=== PATIENT | female | born 1955 | race African-American/Black ===

== ENCOUNTER 2018-05-07 21:59 | Emergency (ER) | payer MEDICAID, MEDICARE ==
[~2018-05-07] VITALS: Ht 167.6 cm; Wt 69.0 kg
[~2018-05-07 21:59] MED LIST: FENTANYL PATCH; HYDR-1348 PO; S350 PO
[2018-05-07] MEDS ORDERED: IBUPROFEN 600MG TABLET PO ONE (23:00)
[2018-05-08] MEDS ORDERED: KETOROLAC 60MG/2ML VIAL IM ONE (00:45)
[2018-05-08 01:25] VITALS: BP 116/65
== END 2018-05-08 01:27 | disposition home or self-care (01) ==
LOC: ER 21:59
DX: S52.501A Unspecified fracture of the lower end of right radius, initial encounter for closed fracture (principal); M19.90 Unspecified osteoarthritis, unspecified site; Z79.899 Other long term (current) drug therapy; W19.XXXA Unspecified fall, initial encounter; Y93.89 Activity, other specified; Y92.89 Other specified places as the place of occurrence of the external cause; Y99.8 Other external cause status
CPT/HCPCS: 29125; 73090; 73110; 96372; 99284; J1885; A4565

== ENCOUNTER 2018-05-26 05:47 | Inpatient (IN) | payer MEDICARE ==
[~2018-05-26] VITALS: Ht 167.6 cm; Wt 68.9 kg
[~2018-05-26 05:47] MED LIST changes: +LACTATED RINGERS 1,000 ML IV SCH
[2018-05-26 06:58] LABS: BASOPHILS % 0.9 % (0.0-2.0); EOSINOPHILS % 2.5 % (0.0-5.0); HEMOGLOBIN. 14.2 g/dL (12.0-16.0); MEAN CORPUSCULAR HEMOGLOBIN 33.8 pg (28.0-32.0); MEAN CORPUSCULAR VOLUME 102.2 fL (81.0-99.0); MEAN PLATELET VOLUME 10.8 fl (7.4-10.4); MONOCYTES % 8.2 % (2.0-8.0); NEUTROPHILS % 65.4 % (40.0-76.0); PLATELET 128 x1000/uL (130-400); RED CELL DISTRIBUTION WIDTH 13.1 % (11.6-14.6)
[2018-05-26 07:01] LABS: CLARITY URINE CLEAR (CLEAR); COLOR URINE YELLOW (YELLOW); KETONES URINE NEGATIVE (NEGATIVE); LEUKOCYTE ESTERASE URINE 1+ (NEGATIVE); NITRITE URINE NEGATIVE (NEGATIVE); OCCULT BLOOD URINE NEGATIVE (NEGATIVE); PH URINE 7.5 (4.5-8.0); PROTEIN URINE NEGATIVE (NEGATIVE); SPECIFIC GRAVITY URINE 1.018 (1.005-1.030)
[2018-05-26 07:12] LABS: INR 1.1; PARTIAL THROMBOPLASTIN TIME 26.5 sec (23.4-31.0); PROTHROMBIN TIME 10.6 sec (9.1-11.1)
[2018-05-26] MEDS ORDERED: NORMAL SALINE 0.9% 10 ML SYR ONE (07:24)
[2018-05-26] MEDS ORDERED: BUPIVACAINE HCL/PF 0.25% (2.5MG/ML) 10ML ONE (07:24)
[2018-05-26] MEDS ORDERED: BACITRACIN 50,000 UNITS/VIAL ONE (07:25)
[2018-05-26] MEDS ORDERED: ZOLP10TA2 PO (07:52)
[2018-05-26] MEDS ORDERED: TOPA200 PO (07:52)
[2018-05-26] MEDS ORDERED: EVIS60 PO (07:52)
[2018-05-26] MEDS ORDERED: HYDR4TAB4 PO (07:52)
[2018-05-26] MEDS ORDERED: CHOL500051 PO (07:52)
[2018-05-26] MEDS ORDERED: ESCI10TA PO (07:52)
[2018-05-26] MEDS ORDERED: TIZA4CAP PO (07:52)
[2018-05-26] MEDS ORDERED: FAMO40TA70 PO (07:52)
[2018-05-26] MEDS ORDERED: MIDAZOLAM HCL 2 MG/2 ML VIAL ONE (07:53)
[2018-05-26] MEDS ORDERED: ONDANSETRON HCL 4MG/2ML INJ ONE (07:53)
[2018-05-26] MEDS ORDERED: LIDOCAINE HCL/PF 1% 10 MG/ML 5ML VIAL ONE (07:53)
[2018-05-26] MEDS ORDERED: GLYCOPYRROLATE 0.2 MG/ML 2ML VIAL ONE (07:53)
[2018-05-26] MEDS ORDERED: FENTANYL CITRATE/PF 50MCG/ML 2ML VIAL ONE (07:53)
[2018-05-26] MEDS ORDERED: PROPOFOL 200MG/20ML VIAL IV ONE (07:53)
[2018-05-26] MEDS ORDERED: METOCLOPRAMIDE HCL 10MG/2ML VIAL ONE (07:53)
[2018-05-26] MEDS ORDERED: SUCCINYLCHOLINE CHLORIDE 200MG/10ML IV ONE (07:53)
[2018-05-26] MEDS ORDERED: IMIT50 PO (07:54)
[2018-05-26] MEDS ORDERED: ROPIVACAINE HCL 10MG/ML 20 ML VIAL EPI ONE ×2 (07:57→08:00)
[2018-05-26] MEDS ORDERED: ALBUMIN HUMAN 12.5G/250ML (5%) IV ONE (08:37)
[2018-05-26 09:16] LABS: CLARITY URINE CLEAR (CLEAR); COLOR URINE YELLOW (YELLOW); KETONES URINE TRACE (NEGATIVE); LEUKOCYTE ESTERASE URINE NEGATIVE (NEGATIVE); NITRITE URINE NEGATIVE (NEGATIVE); OCCULT BLOOD URINE NEGATIVE (NEGATIVE); PH URINE 8.5 (4.5-8.0); PROTEIN URINE NEGATIVE (NEGATIVE); SPECIFIC GRAVITY URINE 1.023 (1.005-1.030)
[2018-05-26] MEDS ORDERED: SODIUM CHLORIDE 0.9% 1,000 ML IV ONE (10:39)
[2018-05-26] MEDS ORDERED: HYDROMORPHONE HCL/PF 2MG/ML CPJ IV PRN (10:45)
[2018-05-26] MEDS ORDERED: MORPHINE SULFATE 4 MG/ML CPJ (NOT FOR IM USE) IV PRN ×2 (10:45→11:45)
[2018-05-26] MEDS ORDERED: ONDANSETRON HCL 4MG/2ML INJ IV PRN ×2 (10:45→11:45)
[2018-05-26] MEDS ORDERED: MEPERIDINE HCL/PF 25MG/ML CPJ IV PRN ×2 (10:45)
[2018-05-26] MEDS ORDERED: MAGNESIUM HYDROXIDE 400MG/5ML 30ML UDC PO PRN (11:45)
[2018-05-26] MEDS ORDERED: KETOROLAC 30MG/ML VIAL IV PRN (11:45)
[2018-05-26] MEDS ORDERED: ZOLPIDEM TARTRATE 5MG TABLET PO PRN (11:45)
[2018-05-26] MEDS ORDERED: TRAMADOL 50MG TABLET PO PRN (11:45)
[2018-05-26] MEDS ORDERED: HYDROCODONE/ACETAMINOPHEN 10/325MG TABLET PO PRN (11:45)
[2018-05-26 12:00] VITALS: BP 104/55
[2018-05-26 16:00] VITALS: BP 102/53
[2018-05-26] MEDS: DOCUSATE SODIUM 100MG CAPSULE PO SCH (17:28)
[2018-05-26] MEDS: CEFAZOLIN 2,000 MG in DEXT 5% WATER 100 ML IV SCH ×2 (17:36→21:36)
[2018-05-26] MEDS: HYDROCODONE/ACETAMINOPHEN 10/325MG TABLET PO PRN ×2 (17:56→22:50)
[2018-05-26 19:24] VITALS: BP 102/53
[2018-05-26 20:00] VITALS: BP 102/54
[2018-05-26] MEDS: ACETAMINOPHEN 325MG TABLET PO PRN (21:31)
[2018-05-27] VITALS: BP 133/72
[2018-05-27] MEDS: HYDROCODONE/ACETAMINOPHEN 10/325MG TABLET PO PRN (03:20)
[2018-05-27 04:00] VITALS: BP 139/78
[2018-05-27] MEDS: MORPHINE SULFATE 4 MG/ML CPJ (NOT FOR IM USE) IV PRN ×4 (06:49→20:25)
[2018-05-27 08:00] VITALS: BP 149/89
[2018-05-27] MEDS: DOCUSATE SODIUM 100MG CAPSULE PO SCH ×2 (09:28→16:11)
[2018-05-27 11:03] LABS: CHLORIDE 110 mEq/L (98-107)
[2018-05-27 12:00] VITALS: BP 158/88
[2018-05-27 16:00] VITALS: BP 157/86
[2018-05-27 20:00] VITALS: BP 149/85
[2018-05-28] VITALS: BP 144/81
[2018-05-28] MEDS: MORPHINE SULFATE 4 MG/ML CPJ (NOT FOR IM USE) IV PRN ×2 (00:33→05:55)
[2018-05-28] MEDS: ACETAMINOPHEN 325MG TABLET PO PRN (00:38)
[2018-05-28 04:00] VITALS: BP 110/79
[2018-05-28 05:56] VITALS: BP 126/80
[2018-05-28] MEDS: DOCUSATE SODIUM 100MG CAPSULE PO SCH (09:00)
[2018-05-28 11:00] VITALS: BP 113/78
[2018-05-28 13:23] VITALS: BP 119/63
[2018-05-28] MEDS: HYDROCODONE/ACETAMINOPHEN 10/325MG TABLET PO PRN (13:23)
== END 2018-05-28 15:46 | disposition home or self-care (01) | DRG 512 ==
LOC: OR 05:47 → 6EST 05:48
PROVIDERS: ADMIT Orthopaedic Surgery; ATTEND Orthopaedic Surgery
PROC: 0PUH0KZ Supplement Right Radius with Nonautologous Tissue Substitute, Open Approach (ICD-10-PCS; 2018-05-26)
PROC: 0PSH04Z Reposition Right Radius with Internal Fixation Device, Open Approach (ICD-10-PCS; principal; 2018-05-26 07:30)
DX: S52.571P Other intraarticular fracture of lower end of right radius, subsequent encounter for closed fracture with malunion (principal); G89.4 Chronic pain syndrome; L84 Corns and callosities; M81.0 Age-related osteoporosis without current pathological fracture; W18.39XA Other fall on same level, initial encounter; Y93.89 Activity, other specified; Y92.89 Other specified places as the place of occurrence of the external cause; Y99.8 Other external cause status; Z98.84 Bariatric surgery status; Z90.49 Acquired absence of other specified parts of digestive tract; Z87.81 Personal history of (healed) traumatic fracture
CPT/HCPCS: 36415; 71045; 73110; 80048; 93005; 97116; 97162; 97166; A4216; C1713; C1893; J0330; J0690; J1885; J2250; J2270; J2405; J2704; J2765; J2795; J3010; J3490; J7050; J7060; P9041